=== PATIENT | female | born 1950 | race Caucasian/White ===

== ENCOUNTER → 2019-08-13 | Outpatient (CLI) | payer MEDICARE ==
--- NOTE | 2019-08-13 21:25 | PCVCIMAG ---
APPROVED REPORT Study performed: 08/13/2019 14:59:33 EXAM: Comprehensive 2D, Doppler, and color-flow Echocardiogram Patient Location: Echo lab Room #: 3Status: routine BSA: 1.86 HR: 85 bpmBP: 144/82 mmHg Rhythm: NSR Other Information Study Quality: Adequate Risk Factors: Cardiac Risk Factors: HTN, Hyperlipidemia, DM Indications Abnormal ECG Dyspnea 2D Dimensions IVSd: 12.83 (7-11mm)LVOT Diam: 20.00 (18-24mm) LVDd: 38.10 mm PWd: 12.14 (7-11mm)Ascending Ao: 36.80 (22-36mm) LVDs: 28.11 (25-40mm) Left Atrium: 45.03 (27-40mm) Aortic Root: 34.19 mm LV Single Plane 4CH: 53.67 % LV Single Plane 2CH: 54.27 % Biplane EF: 54.6 % Volumes Left Atrial Volume (Systole) Single Plane 4CH: 41.24 mLSingle Plane 2CH: 36.76 mL LA ESV Index: 21.00 mL/m2 Aortic Valve AoV Peak Marcus.: 1.52 m/s AO Peak Gr.: 9.30 mmHgLVOT Max P.07 mmHg LVOT Max V: 1.01 m/s MEHUL Vmax: 1.99 cm2 Mitral Valve E/A Ratio: 0.6 MV Decel. Time: 164.13 ms MV E Max Marcus.: 0.74 m/s MV A Marcus.: 1.17 m/s IVRT: 65.74 ms TDI E/Lateral E': 12.33E/Medial E': 18.50 Medial E' Marcus.: 0.04 m/s Lateral E' Marcus.: 0.06 m/s Pulmonary Valve PV Peak Marcus.: 1.20 m/sPV Peak Gr.: 5.74 mmHg Pulmonary Vein P Vein S: 0.77 m/sP Vein A: 0.37 m/s P Vein D: 0.58 m/sP Vein A Dur.: 93.4 msec P Vein S/D Ratio: 1.33 Tricuspid Valve RAP Estimate: 7.00 mmHg Left Ventricle The left ventricle is normal size. There is normal LV segmental wall motion. Mild concentric left ventricular hypertrophy. Left ventricular systolic function is normal. The left ventricular ejection fraction is within the normal range. LVEF is 55%. Mild diastolic dysfunction is present (impaired relaxation pattern). Right Ventricle The right ventricle is normal size. The right ventricular systolic function is normal. Atria The left atrium size is normal. The right atrium size is normal. Aortic Valve The aortic valve is normal in structure. Trace aortic regurgitation. There is no aortic valvular stenosis. Mitral Valve The mitral valve is normal in structure. There is no mitral valve regurgitation noted. No evidence of mitral valve stenosis. Tricuspid Valve The tricuspid valve is normal in structure. There is no tricuspid valve regurgitation noted. Pulmonic Valve The pulmonary valve is normal in structure. Trace pulmonic regurgitation. Great Vessels The aortic root is normal in size. The ascending aorta is normal in size. IVC is normal in size and collapses >50% with inspiration. Pericardium There is no pericardial effusion. <Conclusion> The left ventricle is normal size. Mild concentric left ventricular hypertrophy. LVEF is 55%. The aortic valve is normal in structure. Trace aortic regurgitation. The mitral valve is normal in structure. The tricuspid valve is normal in structure. There is no pericardial effusion.
== END | disposition home or self-care (01) ==
LOC: PCVCIMAG 14:57
PROVIDERS: ATTEND Internal Medicine
DX: I11.9 Hypertensive heart disease without heart failure (principal)
CPT/HCPCS: 93306

== ENCOUNTER → 2019-08-24 | Outpatient (CLI) | payer MEDICARE ==
[~2019-08-24] MED LIST: REGADENOSON 0.4 MG/5 ML DISP.SYRIN. IV ONE
--- NOTE | 2019-08-25 09:46 | PCVCIMAG ---
APPROVED REPORT Imaging Protocol: Rest Tc-99m/Stress Tc-99m 1 day Study performed: 08/24/2019 13:36:21 Indication: Abnormal EKG, Dyspnea Patient Location: Out-Patient Stress Nurse: Lisseth Mccallum RN, Jocelyn Nixon RN [employer]:Lucille King [facility] Ht: 5 ft 3 in Wt: 182 lbs BSA: 1.86 m2 HR: 76 bpm BP: 189/93 mmHg BMI: 32.23 Rhythm: Normal Sinus Rhythm Medical History Medications: Amlodipine, Losartan, Aspirin, Statin Allergies: No known drug allergies Cardiac Risk Factors: Age Pretest Chest Pain Characteristics: No chest pain Resting Data Rest SPECT myocardial perfusion imaging was performed in supine position 45 minutes following the intravenous injection of 10.5 mCi of Tc-99m Sestamibi. Time of rest injection: 1310 Date: 08/24/2019 Administration Route: IV Administration Site: Right AC Pharmacologic Stress Pharmacologic stress test was performed by injecting Regadenoson 0.4 mg IV push over 10-15 seconds immediately followed by the intravenous injection of 33.9 mCi of Tc-99m Sestamibi. Time of stress injection: 1430 Date: 08/24/2019 Administration Route: IV Administration Site: Right AC Gated Stress SPECT was performed 45 minutes after stress injection. Stress Test Details Stress Test: Pharmacologic stress testing performed using 0.4 mg of regadenoson per 5 mL given IV over 10 seconds. Reason for pharmacologic stress test: physical limitation. HRMax Heart Rate (APMHR): 150 bpm Resting HR: 76 bpmTarget HR (85% APMHR): 127 bpm Max HR Achieved: 108 bpm % of APMHR: 72 Recovery HR: 93 bpm BP Resting BP: 189/93 mmHg Max BP: 185/92 mmHg Recovery BP: 170/83 mmHg ECG Resting ECG: Normal Sinus Rhythm Stress ECG: Sinus Tachycardia Arrhythmia: PVC's Recovery ECG: Sinus Rhythm Clinical Reason for Termination: Completed protocol Stress Symptoms: Nausea Symptoms resolved with caffeine. Stress ECG Conclusion 1. Adequate response to intravenous Lexiscan 2. Inadequate heart rate for ECG diagnosis Study Data Post stress, the left ventricular ejection was 48%.. SSS: 8 SRS: 0. SDS: 8 TID = 1.05. Perfusion There is a medium area of moderately reduced uptake in the mid and apical segment of the inferior wall which is seen on the stress images as well as the resting images. This area is hypokinetic and is most consistent with prior ischemic event versus chronically ischemic tissue. Nuclear Conclusion ECG Findings: non-diagnostic Clinical Findings: negative for ischemia Nuclear Findings: negative for inducible ischemia Exercise Capacity: not assessed Left Ventricular Function: abnormal 1. Intermediate risk study based on the presence of an inferior fixed defect and hypokinesis which may represent a chronically ischemic region versus a prior ischemic event. No active inducible ischemia was identified 2. Post stress left ventricular ejection fraction 45% with inferior hypokinesis noted <Conclusion> 1. Adequate response to intravenous Lexiscan 2. Inadequate heart rate for ECG diagnosis
== END | disposition home or self-care (01) ==
LOC: PCVCIMAG 12:54
PROVIDERS: ATTEND Internal Medicine
DX: R94.31 Abnormal electrocardiogram [ECG] [EKG] (principal); I10 Essential (primary) hypertension; E78.5 Hyperlipidemia, unspecified; Z90.710 Acquired absence of both cervix and uterus
CPT/HCPCS: 78452; 93017; A9500; J2785